=== PATIENT | female | born 1945 | race Caucasian/White ===

== ENCOUNTER 2024-01-13 20:30 | Inpatient (IN) | payer OTHER, MEDICARE ==
[~2024-01-13] VITALS: Ht 165.1 cm; Wt 88.0 kg
[2024-01-13 20:44] VITALS: PULSE 105; RESP 26; TEMP 96.2; O2SAT 100
[2024-01-13 21:22] LABS: HEMATOCRIT 45.8 % (36-48); HEMOGLOBIN 14.4 g/dL (12.0-16.0); MEAN CORPUSCULAR HEMOGLOBIN 31 pg (27-31); MEAN CORPUSCULAR HGB CONC 31 % (32-36); MEAN CORPUSCULAR VOLUME 97 fL (79.0-98.0); PLATELET COUNT (AUTO) 364 K/uL (130-430); RED CELL DISTRIBUTION WIDTH 14.4 % (9.0-15.0); WHITE BLOOD COUNT (AUTO) 24.6 K/uL (4.8-10.8)
[2024-01-13] MEDS: NACL 0.9% 2,000 ML IV ONE (21:33)
[2024-01-13 21:39] LABS: BAND % (MANUAL) 6 % (0-6); BASOPHILS % (MANUAL) 0 % (0-2); EOSINOPHILS % (MANUAL) 0 % (0-7); LYMPHOCYTES % (MANUAL) 6 % (20-46); METAMYELOCYTES % 1 % (0-0); MONOCYTES % (MANUAL) 4 % (0-11); PLATELET ESTIMATE ADEQUATE (ADEQUATE)
[2024-01-13 21:41] LABS: ALANINE AMINOTRANSFERASE 23 U/L (12-78); ANION GAP 34 (5-15); ASPARTATE AMINOTRANSFERASE 23 U/L (10-37); BILIRUBIN,DIRECT 0.3 mg/dL (0.0-0.3); CALCIUM 9.3 mg/dL (8.4-11.0); CHLORIDE 96 mmol/L (98-107); CREATINE KINASE, TOTAL 162 U/L (26-192); CREATININE 3.62 mg/dL (0.55-1.30); LIPASE 120 U/L (16-77); PHOSPHORUS 8.8 mg/dL (2.7-4.5); SODIUM SERUM 138 mmol/L (136-145); TOTAL BILIRUBIN 0.9 mg/dL (0.0-1.0); TOTAL PROTEIN, SERUM 7.9 g/dL (6.4-8.3)
[2024-01-13 21:45] LABS: CARBON DIOXIDE 8 mmol/L (23-29); GLUCOSE 764 mg/dL (74-106); POTASSIUM 6.3 mmol/L (3.5-5.1); UREA NITROGEN, BLOOD 131 mg/dL (8-21)
[2024-01-13 21:50] LABS: ACETONE, SERUM POSITIVE (NEGATIVE)
[2024-01-13] MEDS ORDERED: MAGNESIUM SULFATE 50 ML IV SCH (22:00)
[2024-01-13] MEDS ORDERED: POTASSIUM CHLORIDE 40 MEQ in NS 250 ML IV SCH (22:00)
[2024-01-13] MEDS ORDERED: DEXTROSE 50% JECT 50 ML DISP.SYRIN IVP PRN (22:00)
[2024-01-13] MEDS ORDERED: POTASSIUM CHLORIDE 30 MEQ in NS 250 ML IV SCH (22:00)
[2024-01-13] MEDS ORDERED: KCL 20 mEq in 100 mL (PREMIX) 100 ML IV SCH (22:00)
[2024-01-13] MEDS ORDERED: KCL 10 mEq in 50 mL (PREMIX) 50 ML IV SCH (22:00)
[2024-01-13] MEDS: cefTRIAXone 1 GM IVPB PREMIX 50 ML IV ONE (22:14)
[2024-01-13] MEDS: D5/0.45 NS 1,000 ML IV ONE (23:29)
[2024-01-14] VITALS (14 sets, daily range): BP systolic 108–159; PULSE 97–116; RESP 12–22; TEMP 97.2–97.8; O2SAT 99–100
[2024-01-14] MEDS ORDERED: INSULIN REGULAR, HUMAN 10 UNITS/0.1 ML, 3 ML VIAL ONE
[2024-01-14 00:12] LABS: ANION GAP 29 (5-15); CALCIUM 8.6 mg/dL (8.4-11.0); CARBON DIOXIDE 11 mmol/L (23-29); CHLORIDE 102 mmol/L (98-107); CREATININE 3.37 mg/dL (0.55-1.30); SODIUM SERUM 142 mmol/L (136-145)
[2024-01-14] MEDS: INSULIN REGULAR, HUMAN 100 UNITS in NS 99 ML IV PRN (00:14)
[2024-01-14 00:26] LABS: POTASSIUM 5.9 mmol/L (3.5-5.1)
[2024-01-14 00:27] LABS: GLUCOSE 697 mg/dL (74-106); UREA NITROGEN, BLOOD 128 mg/dL (8-21)
[2024-01-14] MEDS ORDERED: SEMA1PEN3 SUBCUT (01:10)
[2024-01-14] MEDS ORDERED: METO25TA6 PO (01:10)
[2024-01-14] MEDS ORDERED: APIX5TAB PO (01:10)
[2024-01-14] MEDS ORDERED: LEVEMIR (01:10)
[2024-01-14] MEDS ORDERED: ASCO500P18 PO (01:16)
[2024-01-14] MEDS ORDERED: VALP250S3 PO (01:16)
[2024-01-14] MEDS ORDERED: BUPR200T31 PO (01:16)
[2024-01-14] MEDS ORDERED: B1 PO (01:16)
[2024-01-14] MEDS ORDERED: ZINC220T3 PO (01:19)
[2024-01-14] MEDS ORDERED: MULTIVITAMIN/MINERAL PO (01:20)
[2024-01-14] MEDS: NACL 0.9% 1,000 ML IV SCH (02:02)
[2024-01-14] MEDS: CALCIUM GLUC 1 GM/100ML-NACL 100 ML IV ONE (02:06)
[2024-01-14 03:44] LABS: BILIRUBIN,URINE 1+ (NEGATIVE); CLARITY/URINE CLEAR (CLEAR); COLOR,URINE YELLOW (YELLOW); GLUCOSE,URINE 3+ (NEGATIVE); KETONES,URINE 2+ (NEGATIVE); LEUKOCYTE ESTERASE ,URINE NEGATIVE (NEGATIVE); NITRITE, URINE NEGATIVE (NEGATIVE); PROTEIN URINE TRACE (NEGATIVE); UROBILINOGEN,URINE 0.2 (0.2-1.0)
[2024-01-14 03:52] LABS: BLOOD, URINE TRACE (NEGATIVE)
[2024-01-14 04:05] LABS: RBC,URINE 0-3 /HPF (0-3); WBC,URINE 0-3 /HPF (0-3)
[2024-01-14 04:06] LABS: BACTERIA,URINE RARE /HPF (None Seen)
[2024-01-14] MEDS ORDERED: DILTIAZEM HCL 30 MG TABLET ONE (07:13)
[2024-01-14] MEDS ORDERED: dilTIAZem HCL IVP 5 MG/ML VIAL ONE (07:14)
[2024-01-14] MEDS: dilTIAZem HCL IVP 5 MG/ML VIAL IVP ONE (07:15)
[2024-01-14 08:47] LABS: BASOPHILS % (AUTO) 0.2 % (0.0-2.0); EOSINOPHILS % (AUTO) 0.5 % (0.0-4.0); HEMATOCRIT 37.9 % (36-48); HEMOGLOBIN 12.6 g/dL (12.0-16.0); LYMPHOCYTES # (AUTO) 0.3 K/uL (1.0-5.5); LYMPHOCYTES % (AUTO) 5.6 % (20.5-51.5); MEAN CORPUSCULAR HEMOGLOBIN 30 pg (27-31); MEAN CORPUSCULAR HGB CONC 33 % (32-36); MEAN CORPUSCULAR VOLUME 91 fL (79.0-98.0); MONOCYTES # (AUTO) 0.9 K/uL (0.0-1.0); MONOCYTES % (AUTO) 16.4 % (1.7-9.3); NEUTROPHILS # (AUTO) 4.3 K/uL (1.8-7.7); NEUTROPHILS % (AUTO) 77.3 % (40.0-70.0); PLATELET COUNT (AUTO) 229 K/uL (130-430); RED BLOOD CELL COUNT(AUTO) 4.18 MIL/uL (4.2-6.2); RED CELL DISTRIBUTION WIDTH 13.2 % (9.0-15.0); WHITE BLOOD COUNT (AUTO) 5.6 K/uL (4.8-10.8)
[2024-01-14] MEDS: APIXABAN 2.5 MG TABLET PO SCH (09:00)
[2024-01-14] MEDS: METOPROLOL TARTRATE 25 MG TABLET PO SCH (09:00)
[2024-01-14] MEDS: cefTRIAXone 1 GM in D5W 50 ML IV SCH (09:00)
[2024-01-14] MEDS: VALPROIC ACID ORAL SYRUP 250 MG/5 ML UDC PO SCH (09:00)
[2024-01-14] MEDS: buPROPion HCL 150 MG TABLET.SA PO SCH (09:00)
[2024-01-14 09:14] LABS: ANION GAP 20 (5-15); CARBON DIOXIDE 17 mmol/L (23-29); CHLORIDE 113 mmol/L (98-107); CREATININE 3.08 mg/dL (0.55-1.30); GLUCOSE 314 mg/dL (74-106); POTASSIUM 4.1 mmol/L (3.5-5.1); SODIUM SERUM 150 mmol/L (136-145)
[2024-01-14 10:38] LABS: UREA NITROGEN, BLOOD 126 mg/dL (8-21)
[2024-01-14 13:43] LABS: ALANINE AMINOTRANSFERASE 20 U/L (12-78); ALBUMIN 2.5 g/dL (3.4-4.8); ANION GAP 21 (5-15); ASPARTATE AMINOTRANSFERASE 28 U/L (10-37); CALCIUM 9.1 mg/dL (8.4-11.0); CARBON DIOXIDE 19 mmol/L (23-29); CHLORIDE 113 mmol/L (98-107); CREATININE 2.65 mg/dL (0.55-1.30); GLUCOSE 265 mg/dL (74-106); POTASSIUM 4.1 mmol/L (3.5-5.1); SODIUM SERUM 153 mmol/L (136-145); TOTAL BILIRUBIN 0.4 mg/dL (0.0-1.0); TOTAL PROTEIN, SERUM 6.6 g/dL (6.4-8.3)
[2024-01-14 13:50] LABS: UREA NITROGEN, BLOOD 114 mg/dL (8-21)
[2024-01-14 14:13] LABS: BLOOD GAS PCO2 23.1 mmHg (32.0-45.0); BLOOD GAS PH 7.422 (7.350-7.450); BLOOD GAS PO2 104.6 mmHg (83.0-108.0)
[2024-01-14 14:14] LABS: ABG O2 SAT% ESTIMATE 96.7 % (94.0-98.0); ALLEN'S TEST POSITIVE (P); BLOOD GAS BASE EXCESS -7.6 mmol/L (-2.0-3.0); BLOOD GAS HCO3 14.7 mmol/L (21.0-28.0)
[2024-01-14] MEDS: 0.45% NACL 1,000 ML IV SCH (15:35)
[2024-01-14 20:26] LABS: ANION GAP 13 (5-15); CALCIUM 8.7 mg/dL (8.4-11.0); CARBON DIOXIDE 22 mmol/L (23-29); CHLORIDE 119 mmol/L (98-107); CREATININE 2.41 mg/dL (0.55-1.30); GLUCOSE 254 mg/dL (74-106); POTASSIUM 3.9 mmol/L (3.5-5.1); SODIUM SERUM 154 mmol/L (136-145)
[2024-01-14 20:32] LABS: UREA NITROGEN, BLOOD 110 mg/dL (8-21)
[2024-01-15] VITALS (24 sets, daily range): BP systolic 118–193; PULSE 81–108; RESP 16–30; TEMP 97.3–98.2; O2SAT 98–100
[2024-01-15] LABS: ANION GAP 20 (5-15); CALCIUM 8.4 mg/dL (8.4-11.0); CARBON DIOXIDE 19 mmol/L (23-29); CHLORIDE 117 mmol/L (98-107); CREATININE 2.23 mg/dL (0.55-1.30); GLUCOSE 264 mg/dL (74-106); POTASSIUM 3.9 mmol/L (3.5-5.1); SODIUM SERUM 156 mmol/L (136-145); UREA NITROGEN, BLOOD 100 mg/dL (8-21)
[2024-01-15] MEDS: METOPROLOL TARTRATE 5 MG/5 ML VIAL IVP ONE (02:19)
[2024-01-15 05:51] LABS: ANION GAP 16 (5-15); CALCIUM 8.6 mg/dL (8.4-11.0); CARBON DIOXIDE 21 mmol/L (23-29); GLUCOSE 239 mg/dL (74-106); POTASSIUM 3.4 mmol/L (3.5-5.1); SODIUM SERUM 157 mmol/L (136-145); UREA NITROGEN, BLOOD 90 mg/dL (8-21)
[2024-01-15 06:27] LABS: CHLORIDE 120 mmol/L (98-107)
[2024-01-15] MEDS ORDERED: SEMA2PEN (06:41)
[2024-01-15] MEDS: KCL 20 mEq in 100 mL (PREMIX) 100 ML IV ONE (10:17)
[2024-01-15] MEDS ORDERED: hydrALAZINE HCL 20 MG/ML VIAL IVP PRN (13:30)
[2024-01-15] MEDS ORDERED: INSULIN REGULAR, HUMAN 100 UNITS in NS 99 ML IV PRN (20:45)
[2024-01-15 21:17] LABS: ANION GAP 17 (5-15); CALCIUM 8.9 mg/dL (8.4-11.0); CARBON DIOXIDE 20 mmol/L (23-29); CREATININE 1.65 mg/dL (0.55-1.30); GLUCOSE 237 mg/dL (74-106); POTASSIUM 4.1 mmol/L (3.5-5.1); UREA NITROGEN, BLOOD 71 mg/dL (8-21)
[2024-01-15 21:20] LABS: SODIUM SERUM 160 mmol/L (136-145)
[2024-01-15 21:22] LABS: CHLORIDE 123 mmol/L (98-107)
[2024-01-16] VITALS (24 sets, daily range): BP systolic 121–180; PULSE 74–130; RESP 10–33; TEMP 97.4–98.7; O2SAT 98–100
[2024-01-16 02:13] LABS: ANION GAP 15 (5-15); CALCIUM 8.6 mg/dL (8.4-11.0); CARBON DIOXIDE 23 mmol/L (23-29); CREATININE 1.58 mg/dL (0.55-1.30); GLUCOSE 249 mg/dL (74-106); POTASSIUM 3.9 mmol/L (3.5-5.1); UREA NITROGEN, BLOOD 67 mg/dL (8-21)
[2024-01-16 02:32] LABS: CHLORIDE 123 mmol/L (98-107); SODIUM SERUM 161 mmol/L (136-145)
[2024-01-16] MEDS: D5W 1,000 ML IV SCH (03:00)
[2024-01-16 06:10] LABS: BASOPHILS % (AUTO) 0.2 % (0.0-2.0); EOSINOPHILS # (AUTO) 0.1 K/uL (0.0-0.4); EOSINOPHILS % (AUTO) 0.7 % (0.0-4.0); HEMATOCRIT 34.6 % (36-48); HEMOGLOBIN 11.5 g/dL (12.0-16.0); LYMPHOCYTES # (AUTO) 1.4 K/uL (1.0-5.5); LYMPHOCYTES % (AUTO) 19.1 % (20.5-51.5); MEAN CORPUSCULAR HEMOGLOBIN 30 pg (27-31); MEAN CORPUSCULAR HGB CONC 33 % (32-36); MEAN CORPUSCULAR VOLUME 91 fL (79.0-98.0); MONOCYTES # (AUTO) 0.8 K/uL (0.0-1.0); NEUTROPHILS # (AUTO) 5.1 K/uL (1.8-7.7); PLATELET COUNT (AUTO) 189 K/uL (130-430); RED BLOOD CELL COUNT(AUTO) 3.83 MIL/uL (4.2-6.2); RED CELL DISTRIBUTION WIDTH 13.7 % (9.0-15.0); WHITE BLOOD COUNT (AUTO) 7.3 K/uL (4.8-10.8)
[2024-01-16 06:41] LABS: ALANINE AMINOTRANSFERASE 21 U/L (12-78); ANION GAP 19 (5-15); ASPARTATE AMINOTRANSFERASE 25 U/L (10-37); CALCIUM 8.6 mg/dL (8.4-11.0); CARBON DIOXIDE 18 mmol/L (23-29); CREATININE 1.41 mg/dL (0.55-1.30); GLUCOSE 250 mg/dL (74-106); POTASSIUM 3.5 mmol/L (3.5-5.1); SODIUM SERUM 159 mmol/L (136-145); TOTAL BILIRUBIN 0.5 mg/dL (0.0-1.0); TOTAL PROTEIN, SERUM 5.9 g/dL (6.4-8.3); UREA NITROGEN, BLOOD 59 mg/dL (8-21)
[2024-01-16 06:59] LABS: CHLORIDE 122 mmol/L (98-107)
[2024-01-16] MEDS ORDERED: MUPIROCIN 2% TOPICAL OINTMENT 22 GM TP SCH ×2 (10:15→21:00)
[2024-01-16] MEDS: MUPIROCIN 2% TOPICAL OINTMENT 22 GM TP ONE (11:23)
[2024-01-16] MEDS: VANCOMYCIN HCL 1,000 MG in NS 250 ML IV SCH (18:15)
[2024-01-16] MEDS: ONDANSETRON HCL 4 MG/2 ML VIAL IVP PRN (18:16)
[2024-01-16] MEDS: MUPIROCIN 2% TOPICAL OINTMENT 22 GM NS SCH (20:31)
[2024-01-16 21:09] LABS: ANION GAP 14 (5-15); CALCIUM 8.2 mg/dL (8.4-11.0); CARBON DIOXIDE 23 mmol/L (23-29); CREATININE 1.36 mg/dL (0.55-1.30); GLUCOSE 295 mg/dL (74-106); POTASSIUM 4.2 mmol/L (3.5-5.1); SODIUM SERUM 157 mmol/L (136-145); UREA NITROGEN, BLOOD 47 mg/dL (8-21)
[2024-01-16 21:16] LABS: CHLORIDE 120 mmol/L (98-107)
[2024-01-17] VITALS (18 sets, daily range): BP systolic 101–152; PULSE 74–95; RESP 12–23; TEMP 97.6–98.8; O2SAT 86–100
[2024-01-17 07:46] LABS: BASOPHILS % (AUTO) 0.5 % (0.0-2.0); EOSINOPHILS # (AUTO) 0.2 K/uL (0.0-0.4); EOSINOPHILS % (AUTO) 3.2 % (0.0-4.0); HEMATOCRIT 37.4 % (36-48); HEMOGLOBIN 12.3 g/dL (12.0-16.0); LYMPHOCYTES # (AUTO) 1.9 K/uL (1.0-5.5); LYMPHOCYTES % (AUTO) 25.4 % (20.5-51.5); MEAN CORPUSCULAR HEMOGLOBIN 30 pg (27-31); MEAN CORPUSCULAR HGB CONC 33 % (32-36); MEAN CORPUSCULAR VOLUME 92 fL (79.0-98.0); MONOCYTES # (AUTO) 0.6 K/uL (0.0-1.0); MONOCYTES % (AUTO) 8.7 % (1.7-9.3); NEUTROPHILS # (AUTO) 4.6 K/uL (1.8-7.7); NEUTROPHILS % (AUTO) 62.2 % (40.0-70.0); PLATELET COUNT (AUTO) 224 K/uL (130-430); RED BLOOD CELL COUNT(AUTO) 4.08 MIL/uL (4.2-6.2); RED CELL DISTRIBUTION WIDTH 13.8 % (9.0-15.0); WHITE BLOOD COUNT (AUTO) 7.3 K/uL (4.8-10.8)
[2024-01-17 08:34] LABS: ANION GAP 13 (5-15); CALCIUM 8.8 mg/dL (8.4-11.0); CARBON DIOXIDE 26 mmol/L (23-29); CHLORIDE 117 mmol/L (98-107); CREATININE 1.48 mg/dL (0.55-1.30); GLUCOSE 319 mg/dL (74-106); POTASSIUM 3.9 mmol/L (3.5-5.1); SODIUM SERUM 156 mmol/L (136-145); UREA NITROGEN, BLOOD 43 mg/dL (8-21)
[2024-01-17 10:54] LABS: ALANINE AMINOTRANSFERASE 17 U/L (12-78); ANION GAP 12 (5-15); ASPARTATE AMINOTRANSFERASE 19 U/L (10-37); CALCIUM 8.1 mg/dL (8.4-11.0); CARBON DIOXIDE 24 mmol/L (23-29); CHLORIDE 116 mmol/L (98-107); CREATININE 1.43 mg/dL (0.55-1.30); GLUCOSE 359 mg/dL (74-106); POTASSIUM 3.8 mmol/L (3.5-5.1); SODIUM SERUM 152 mmol/L (136-145); TOTAL BILIRUBIN 0.3 mg/dL (0.0-1.0); TOTAL PROTEIN, SERUM 5.5 g/dL (6.4-8.3); UREA NITROGEN, BLOOD 43 mg/dL (8-21)
[2024-01-17] MEDS: 0.45% NS 500 ML IV ONE (11:00)
[2024-01-17] MEDS ORDERED: D5W 1,000 ML IV PRN (11:15)
[2024-01-17] MEDS ORDERED: GLUCOSE (DEXTROSE) ORAL GEL -Adults PO PRN (11:15)
[2024-01-17] MEDS ORDERED: DEXTROSE 50%-WATER 50 ML DISP.SYRIN IVP PRN (11:15)
[2024-01-17] MEDS: 0.45% NACL 1,000 ML IV SCH (15:11)
[2024-01-17] MEDS: INSULIN LISPRO SLIDING SCALE 100 UNITS/ML, 3 ML VIAL (humaLOG) SUBCUT PRN ×2 (15:39→22:24)
[2024-01-17] MEDS ORDERED: INSULIN Lispro 100 UNITS/ML, 3 ML VIAL (humaLOG) SUBCUT ONE (19:00)
[2024-01-17 20:20] LABS: ANION GAP 11 (5-15); CALCIUM 8.4 mg/dL (8.4-11.0); CARBON DIOXIDE 27 mmol/L (23-29); CHLORIDE 112 mmol/L (98-107); CREATININE 1.69 mg/dL (0.55-1.30); GLUCOSE 322 mg/dL (74-106); POTASSIUM 3.2 mmol/L (3.5-5.1); SODIUM SERUM 150 mmol/L (136-145); UREA NITROGEN, BLOOD 45 mg/dL (8-21)
[2024-01-17] MEDS: INSULIN GLARGINE 100 UNITS/ML, 10 ML VIAL SUBCUT SCH (22:21)
[2024-01-18] MEDS: POTASSIUM CHLORIDE 20 MEQ TABLET.ER PO ONE (00:48)
[2024-01-18 00:59] VITALS: BP_SYST 103; PULSE 87; RESP 19; TEMP 96.4; O2SAT 98
[2024-01-18] MEDS: INSULIN Lispro 100 UNITS/ML, 3 ML VIAL (humaLOG) SUBCUT SCH (06:22)
[2024-01-18 08:00] VITALS: BP_SYST 108; PULSE 89; RESP 18; TEMP 98.1; O2SAT 100
[2024-01-18 09:46] LABS: HEMATOCRIT 35.2 % (36-48); HEMOGLOBIN 11.5 g/dL (12.0-16.0); MEAN CORPUSCULAR HEMOGLOBIN 30 pg (27-31); MEAN CORPUSCULAR HGB CONC 33 % (32-36); MEAN CORPUSCULAR VOLUME 91 fL (79.0-98.0); PLATELET COUNT (AUTO) 212 K/uL (130-430); RED BLOOD CELL COUNT(AUTO) 3.85 MIL/uL (4.2-6.2); RED CELL DISTRIBUTION WIDTH 13.5 % (9.0-15.0); WHITE BLOOD COUNT (AUTO) 13.8 K/uL (4.8-10.8)
[2024-01-18 10:16] LABS: ALANINE AMINOTRANSFERASE 20 U/L (12-78); ANION GAP 9 (5-15); ASPARTATE AMINOTRANSFERASE 20 U/L (10-37); CARBON DIOXIDE 25 mmol/L (23-29); CHLORIDE 112 mmol/L (98-107); CREATININE 1.21 mg/dL (0.55-1.30); GLUCOSE 181 mg/dL (74-106); POTASSIUM 4.2 mmol/L (3.5-5.1); SODIUM SERUM 146 mmol/L (136-145); TOTAL BILIRUBIN 0.2 mg/dL (0.0-1.0); TOTAL PROTEIN, SERUM 5.6 g/dL (6.4-8.3); UREA NITROGEN, BLOOD 37 mg/dL (8-21)
[2024-01-18 11:10] VITALS: BP_SYST 111; PULSE 88; RESP 15; TEMP 98.5; O2SAT 96
[2024-01-18 11:47] VITALS: BP_SYST 115; PULSE 76; RESP 18; TEMP 98.7; O2SAT 100
[2024-01-18 12:30] LABS: ATYPICAL LYMPHOCYTES % 9 % (0-0); BAND % (MANUAL) 5 % (0-6); BASOPHILS % (MANUAL) 0 % (0-2); EOSINOPHILS % (MANUAL) 3 % (0-7); LYMPHOCYTES % (MANUAL) 18 % (20-46); MONOCYTES % (MANUAL) 8 % (0-11)
[2024-01-18 12:31] LABS: PLATELET ESTIMATE ADEQUATE (ADEQUATE)
[2024-01-18] MEDS ORDERED: INSU100V9 SQ (15:05)
[2024-01-18] MEDS ORDERED: INSU100V SUBCUT (15:06)
== END 2024-01-18 14:30 | DRG 871 ==
LOC: SED 20:30 → SIC 23:35 → STU 01-17 18:55
PROVIDERS: ADMIT Family Medicine; ATTEND Family Medicine
DX: A41.2 Sepsis due to unspecified staphylococcus (principal); E11.10 Type 2 diabetes mellitus with ketoacidosis without coma; G93.41 Metabolic encephalopathy; E87.0 Hyperosmolality and hypernatremia; N17.9 Acute kidney failure, unspecified; E83.39 Other disorders of phosphorus metabolism; E86.0 Dehydration; E87.5 Hyperkalemia; E87.6 Hypokalemia; E66.9 Obesity, unspecified; I10 Essential (primary) hypertension; Z86.718 Personal history of other venous thrombosis and embolism; Z88.5 Allergy status to narcotic agent; Z79.899 Other long term (current) drug therapy; Z68.32 Body mass index [BMI] 32.0-32.9, adult
CPT/HCPCS: 36415; 36600; 70450-TC; 71045; 76770; 80048; 80053; 80076; 81000; 81001; 81015; 82009; 82550; 82803; 82948; 83037; 83605; 83690; 83735; 83880; 84100; 84484; 85007; 85025; 85027; 87040; 87081; 92610-GN; 93005; 97116-GP; 97530-GP; 99291; 99292; J0696; J1815; J2405; J3370; J3480; J3490; J7030; J7050; J7060